=== PATIENT | female | born 1980 | race Caucasian/White ===

== ENCOUNTER → 2017-06-23 07:48 | Outpatient (CLI) | payer OTHER, SELFPAY ==
--- NOTE | 2017-06-23 07:50 | US_ITS ---
STUDY: ULTRASOUND OF THE FEMALE PELVIS - COMPLETE REASON FOR EXAM: Female, 36 years old. Menorrhagia. LMP: June 05, 2017. TECHNIQUE: Transabdominal and Transvaginal TECHNICAL QUALITY: Adequate. COMPARISON: None. FINDINGS: The uterus is anteverted and is in a midline position. The uterus is enlarged and measures 10.4 cm x 6.1 cm x 5.5 cm. Normal uterine cervix. The endometrium measures 15 mm in thickness, and is hyperechoic. There is no demonstrated endometrial mass. 2 uterine fibroids are seen. The larger measures 2.1 cm x 2.0 cm x 1.7 cm I.U.D. - The patient does not have an I.U.D. The right ovary is visualized. The right ovary measures 4.2 cm x 3.2 centimeters x 3.2 cm. Abdominal follicle is seen within it measuring 1.4 size by 1.8 cm x 1.6 cm. There is no visualized right adnexal mass or complex lesion. There is normal arterial and normal venous vascularity. The left ovary is visualized. The left ovary measures 2.6 cm x 3.1 cm x 3.8 cm. There is no left ovarian cyst or ovarian mass. There is no visualized left adnexal mass or complex lesion. There is normal arterial and normal venous vascularity. There is minimal fluid in the cul-de-sac. The pre void volume of the bladder was 452 ml. US/Pelvic (Non ) IMPRESSION: Enlarged fibroid uterus. Dominant follicle in the right ovary. Electronically Signed: Zaire Boss MD at 14:39 EST Tel [phone], Service support ,
--- NOTE | 2017-06-23 07:50 | US_ITS ---
STUDY: ULTRASOUND OF THE FEMALE PELVIS - COMPLETE REASON FOR EXAM: Female, 36 years old. Menorrhagia. LMP: June 05, 2017. TECHNIQUE: Transabdominal and Transvaginal TECHNICAL QUALITY: Adequate. COMPARISON: None. FINDINGS: The uterus is anteverted and is in a midline position. The uterus is enlarged and measures 10.4 cm x 6.1 cm x 5.5 cm. Normal uterine cervix. The endometrium measures 15 mm in thickness, and is hyperechoic. There is no demonstrated endometrial mass. 2 uterine fibroids are seen. The larger measures 2.1 cm x 2.0 cm x 1.7 cm I.U.D. - The patient does not have an I.U.D. The right ovary is visualized. The right ovary measures 4.2 cm x 3.2 centimeters x 3.2 cm. Abdominal follicle is seen within it measuring 1.4 size by 1.8 cm x 1.6 cm. There is no visualized right adnexal mass or complex lesion. There is normal arterial and normal venous vascularity. The left ovary is visualized. The left ovary measures 2.6 cm x 3.1 cm x 3.8 cm. There is no left ovarian cyst or ovarian mass. There is no visualized left adnexal mass or complex lesion. There is normal arterial and normal venous vascularity. There is minimal fluid in the cul-de-sac. The pre void volume of the bladder was 452 ml. US/Transvaginal Non- IMPRESSION: Enlarged fibroid uterus. Dominant follicle in the right ovary. Electronically Signed: Zaire Boss MD at 14:39 EST Tel [phone], Service support ,
== END ==
PROVIDERS: Family Provider Family Medicine; PCP Family Medicine; Visit Provider Nurse Practitioner Women's Health
DX: N92.0 Excessive and frequent menstruation with regular cycle (principal)
CPT/HCPCS: 76830; 76856; 93976

== ENCOUNTER 2018-07-23 09:45 | Day surgery (SDC) | payer OTHER, SELFPAY ==
[2018-07-13 07:56] VITALS: BMI 26.2
--- NOTE | 2018-07-22 11:45 | HP.PCM_ITS ---
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: No Is patient in pain?: No Allergies povidone-iodine [From Betagen (povidone-iodine)] Allergy (Severe, Verified 07/13/18 07:56) Rash Medications NK 06/02/17 [History Confirmed 07/13/18] Is last menstrual period known: Yes Last Menstral Period: 06/22/18 Post menopausal: No Patient : No : No [facility] Surgical History H/O section (Resolved) H/O dilation and curettage (Resolved ~2006) History of appendectomy (Resolved ~2008) Family History Father Heart disease at age 59 Mother Heart disease Hypertension Social History household members: family housing: house number of children: 2 current occupational status: employed Smoking Status: Never smoker second hand exposure: No alcohol intake: current seatbelt use: always do you feel safe at home: Yes additional social history: [place]- Spouse HPI Discuss surgical options: Details: JOSE DE JESUS NG is a 37 year old who presents for discussion of heavy menses. she has had them for the last year. Tampons are not workign [facility] she has to change every 1-2 hours super plus. she denies any signficiant crampingw ith the bleeding. she hasn't tried any hormonal managmeent for this and declines hormonal therapy due to a history of headaches. her has had a vasectomy. she denies any family history of cancer. Female Reproductive History Last Menstral Period: 06/22/18 Pregancy History 3 Elective abortions Hx Para 2 Spontaneous abortions Hx # Term Pregnancies 2 Ectopic pregnancies Hx # Pregnancies Multiple births # of living children 2 Past Pregnancies Del. Date Name GA/Weeks Outcome Route Bth Weight Infant Gen Labor Lgth Anesthesia Del Locatn Provider FOB 11/06/05 Akua 09/05/08 Natasha ROS Const Constitutional: Denies fatigue, fever(s), headache(s), increased appetite, poor appetite, weight gain or weight loss ENT ENT: Reports system reviewed and no additional complaints, except as docu Cardio Card: Denies chest pain Resp Resp: Denies cough or dyspnea GI GI: Reports as per HPI; denies abdominal pain, constipation, nausea or vomiting : Reports as per HPI; denies difficulty urinating, painful urination, nipple discharge, urinary frequency, urinary incontinence, urinary hesitancy, urinary urgency, vaginal discharge, vaginal dryness, vaginal odor or vaginal itching Musc Musc: Denies joint pain, back pain or muscle weakness Skin Skin/Breast: Denies change in hair, breast lump, breast pain, breast skin changes or nipple discharge Neuro Neuro: Reports system reviewed and no additional complaints, except as docu Psych Psych: Reports system reviewed and no additional complaints, except as docu Endo Endo: Denies cold intolerance, excessive sweating, heat intolerance or increased thirst Luciano/Lymph Hematologic/Lymphatic: Denies easy bleeding, Denies easy bruising, Denies enlarged lymph nodes Exam Const General: cooperative, healthy appearing, comfortable, no acute distress, well developed Nutritional Appearance: average body habitus Orientation: alert [facility] Head: normal to inspection, normocephalic Ears: hearing grossly normal bilaterally, external ears normal Nose: external nose normal, nares normal Face and sinus: normal facial exam Neck Neck: normal visual inspection, trachea midline Thyroid: thyroid normal Chest Chest palpation & inspection: normal inspection of the chest Resp Effort & Inspection: normal respiratory effort Auscultation: clear to auscultation bilaterally Cardio Rate: regular rate GI Inspection: normal to inspection, non-distended Palpation: soft, no hepatosplenomegaly General: bladder normal to palpation External Female Exam: normal external appearance, normal appearance of the urethra Urethra: normal appearance of the urethra, normal palpation, no discharge Speculum Exam - Vagina: normal appearance of the vagina, normal vaginal discharge Speculum Exam - Cervix: normal appearance of the cervix, nontender Bimanual Exam- Vagina & Uterus: normal bimanual exam, uterine size normal, bladder normal to palpation, uterine shape normal, No cervical tenderness, u terine mobility normal, uterine consistency normal, normal cervical palpation, uterus non-tender Bimanual Exam- Adnexa, other: normal adnexae, adnexae mobile, no adnexal masses, pelvic support normal Pelvic Support: normal Musc Other: gross motor intact no deficits, full bilateral strength Skin General: no rashes or lesions noted Neuro General: alert, awake, moves all extremities, no focal motor deficits Motor: muscle tone normal throughout Extrem General: normal to inspection, no pedal edema Psych Appearance: grossly normal Mental Status: mental status grossly normal Affect: normal affect Speech and Movement: speech and movement normal Assessment & Plan Problems 1. Abnormal uterine bleeding N93.9 2. Subserous leiomyoma of uterus D25.2 Plan discussed with patient at length options of hormonal, IUD, lysteda, abaltion and LAVH management of AUB. patient declines hromonal management due to side effects i nthe past, plan for d and c hysteroscopy ablation Orders Orders: Comprehensive Metabolic Profil Today R10.11 CBC W/Diff, Automated Today R10.11 Coding Level of Care Code Off vis,est,level 4 Diagnoses Abnormal uterine bleeding N93.9 Subserous leiomyoma of uterus D25.2 ??Uterine leiomyoma location: subserous UPDATE- I have seen the patient and performed any clinically relevant updates to the history and physical exam. Ruth Ann Schroeder MD
[2018-07-23] VITALS (7 sets, daily range): BP systolic 112–141; BP diastolic 73–92; PULSE 59–91; RESP 14–16; TEMP 36.6–36.9; O2SAT 99–100; BMI 25.4
[2018-07-23 10:14] LABS: Internal QC Validated? YES +Cl - CLEAR BKGD; Pregnancy, Urine Negative Negative
[2018-07-23 10:21] LABS: Hematocrit 39.4 % (37-47); Hemoglobin 12.5 g/dl (12.0-15.0); Mean Corp Hgb Conc 31.7 g/gl (32-36); Mean Corpuscular Hgb 27.2 pg (27.0-32.0); Mean Corpuscular Volume 85.8 fL (81-99); Mean Platelet Vol. 9.9 fl (6.2-12.0); Platelet Count 278 K/mm3 (150-450); RBC Distribution Width CV 13.7 % (11.6-14.6); RBC Distribution Width SD 42.7 fl (35.1-43.9); Red Blood Count 4.59 M/mm3 (4.2-5.4); White Blood Count 6.8 K/mm3 (4.4-11.0)
[2018-07-23 10:23] LABS: Scan Indicated on CBC? Y/N NO
--- NOTE | 2018-07-23 13:10 | PCM.OPRPT ---
Problem List (1) Abnormal uterine bleeding (AUB) Status: Acute Report of Operation Date of Procedure: 07/23/18 Pre-Operative Diagnosis: aub Post-Operative Diagnosis: aub Surgery/Procedure Performed:: d and c hysteroscopy akanksah Description of Surgical Findings:: normal, thin lining Type of Anesthesia:: Local MAC Special Medications: none Specimen's removed: none Drains: none Estimated Blood Loss (mL): minimal Fluids Replaced: crystalloid Description of Procedure: Patient was prepped and draped in a normal sterile fashion under MAC anesthesia. A weighted speculum was placed in the vagina and the anterior lip of the cervix was grasped with a single-tooth tenaculum. A paracervical block was placed with 1% lidocaine. Cervix was progressively dilated to allow passage of a 5 mm hysteroscope. The lining was fully visualized and noted to have a thin lining. Uterine sounded to 8.5 cm. The Akanksha device was opened and the cavity length was found to be 4.5 cm. Device was inserted into the uterus and balloon inflated and device deployed. Integrity of the cavity was confirmed and a 2 minute treatment cycle was completed without complication. All instruments were removed from the vagina and excellent hemostasis was noted. Patient was awoken and taken to recovery in stable condition. Grafts/Implants Used: none - Complications none
--- NOTE | 2018-07-23 13:14 | DCINST_ITS ---
Discharge Diet: No Restrictions Discharge Activity: Return to Normal Activity, May Shower, May Take a Tub Bath Allergies/Adverse Reactions: Allergies povidone-iodine [From Betagen (povidone-iodine)] Allergy (Severe, Verified 07/16/18 14:01) Rash Medications to take at Discharge Ibuprofen [Advil] 200 mg PO PRN PRN 07/16/18 Ibuprofen [Motrin] 600 mg PO Q6H PRN PRN #30 tablet 07/23/18 The following prescriptions were given: Ibuprofen [Motrin] 600 mg PO Q6H PRN PRN #30 tablet PRN Reason: Pain Primary Care Physician: Malachi Worthy MD [Primary Care Provider] - Test Results: Test results from this visit will be discussed in further detail at your follow- up appointment, if applicable. Please Follow Up With: Ruth Ann Schroeder MD - [phone]
== END 2018-07-23 14:28 | disposition home or self-care (01) ==
LOC: SDC 09:46 → AC 09:48
PROVIDERS: Anesthesiology; Family Provider Family Medicine; PCP Family Medicine; Referring Provider Obstetrics & Gynecology; Visit Provider Obstetrics & Gynecology
PROC: 0U5B8ZZ Destruction of Endometrium, Via Natural or Artificial Opening Endoscopic (ICD-10-PCS; CPT 58558; principal; 2018-07-23 11:05)
DX: N93.9 Abnormal uterine and vaginal bleeding, unspecified (principal); R10.11 Right upper quadrant pain; D25.2 Subserosal leiomyoma of uterus
CPT/HCPCS: 00952; 58300; 58558; 36415; 81025; 85027; 86850; 86900; J7120; J2405

== ENCOUNTER → 2018-08-01 10:03 | Outpatient (CLI) | payer OTHER, SELFPAY ==
[2018-07-23 10:11] VITALS: BMI 25.4
--- NOTE | 2018-08-01 10:05 | US_ITS ---
STUDY: ABDOMINAL ULTRASOUND - RIGHT UPPER QUADRANT REASON FOR VISIT: Female, 37 years old. Right upper quadrant pain TECHNIQUE: Ultrasound evaluation of the right upper quadrant was performed with real-time and static dee-scale imaging. TECHNICAL QUALITY: Adequate. COMPARISON: None. FINDINGS: Liver: The liver measures 15 cm. There is normal echogenicity of the liver. The bile ducts are within normal limits. There is hepatic color flow. The direction of portal flow is hepatopetal. There is no demonstrated mass lesion. Gallbladder: Normal distended gallbladder. The gallbladder wall measures 2.6 mm. There is a negative sonographic Theodore's sign. There is no pericholecystic fluid. There are no gallstones. Common Bile Duct (C.B.D.): The common bile duct measures 2.6 mm. Pancreas: There is normal echogenicity of the visualized pancreas. There is no demonstrated pancreatic mass or cyst. Right Kidney: Normal size of the right kidney. The right kidney measures 10.5 x 4.4 x 5.0 cm. Normal renal cortex. There is no demonstrated renal mass or cyst. There is no right hydronephrosis. US/Gallbladder IMPRESSION: Normal right upper quadrant ultrasound examination. Electronically Signed: Michael Khan MD at 9:40 EDT , Service support ,
[2018-08-01 12:41] LABS: ALB/GLOB Ratio 1.2 RATIO (0.9-2.4); AST(SGOT) 9 U/L (15-37); Alanine Aminotransfer ALT/SGPT 17 U/L (13-56); Albumin, Serum 3.9 g/dL (3.2-5.0); Alkaline Phosphatase 54 U/L (45-117); Anion Gap 6 (5-15); BUN 10 mg/dL (7-18); BUN/Creat Ratio 14.4 RATIO (10-20); Calcium,Total 8.5 mg/dL (8.5-10.1); Chloride 110 mmol/L (98-107); EST Glomerular Filtration Rate 100 mL/min (>60); Est Glom Filt Rate - Afr Amer 121 mL/min (>60); Globulin 3.2 g/dL (2.2-4.2); Glucose 86 mg/dL (74-106); Potassium 3.9 mmol/L (3.5-5.1); Protein, Total 7.1 g/dL (6.4-8.2); Sodium Level 143 mmol/L (136-145)
== END ==
PROVIDERS: Family Provider Family Medicine; PCP Family Medicine; Referring Provider Obstetrics & Gynecology; Visit Provider Obstetrics & Gynecology
DX: R10.11 Right upper quadrant pain (principal)
CPT/HCPCS: 36415; 76705; 80053

== ENCOUNTER → 2019-08-02 14:43 | Outpatient (CLI) | payer OTHER, SELFPAY ==
[2018-07-23 10:11] VITALS: BMI 25.4
[2019-08-02 17:57] LABS: T4 Free Direct 1.04 ng/dL (0.76-1.46); Thyroid Stim Hormone (TSH) 2.38 uIU/mL (0.358-3.74)
== END ==
PROVIDERS: PCP Family Medicine; Visit Provider Family Medicine
DX: R55 Syncope and collapse (principal); N92.1 Excessive and frequent menstruation with irregular cycle
CPT/HCPCS: 36415; 84439; 84443

== ENCOUNTER → 2020-12-02 08:17 | Outpatient (CLI) | payer OTHER, SELFPAY ==
[2018-07-23 10:11] VITALS: BMI 25.4
[2020-12-02 09:45] LABS: Cholesterol 189 mg/dL (200); Glucose 96 mg/dL (74-106); High Density Lipoprotein 74 mg/dL; Triglycerides 45 mg/dL; Very Low Density Lipoprotein 9 mg/dL (5-40)
== END ==
PROVIDERS: PCP Family Medicine; Referring Provider Family Medicine; Visit Provider Family Medicine
DX: Z13.220 Encounter for screening for lipoid disorders (principal); Z13.1 Encounter for screening for diabetes mellitus
CPT/HCPCS: 36415; 80061; 82947

== ENCOUNTER → 2021-04-25 16:54 | Outpatient (CLI) | payer OTHER, SELFPAY ==
--- NOTE | 2021-04-25 16:57 | RAD_ITS ---
STUDY: X-RAY - UNILATERAL RIBS ( RIGHT ) REASON FOR EXAM: Female, 40 years old. RIB PAIN TECHNIQUE: 4 view(s) of the ribs. COMPARISON: None. FINDINGS: Normal visualized ribs without a demonstrated fracture. The visualized lung is clear and expanded. RAD/Ribs Unil 2V No CXR IMPRESSION: Normal x-ray examination of the ribs. Electronically Signed: Omkar Hernandez MD at 17:14 EST Tel , Service support ,
--- NOTE | 2021-04-25 17:00 | RAD_ITS ---
STUDY: X-RAY CHEST REASON FOR EXAM: Female, 40 years old. CHEST PAIN TECHNIQUE: PA and lateral views of the chest. COMPARISON: None. FINDINGS: The lungs are clear and expanded. There is no demonstrated pleural abnormality. Normal size heart. Normal mediastinum and paola. Normal visualized pulmonary arteries. Normal visualized aortic arch and descending thoracic aorta. Normal visualized thoracic spine. Normal visualized ribs, clavicles, and shoulders. There is no demonstrated abnormality of the visualized soft tissue structures of the upper abdomen. RAD/Chest PA and Lateral IMPRESSION: Normal x-ray examination of the chest. Electronically Signed: Omkar Hernandez MD at 17:15 EST Tel , Service support ,
== END ==
PROVIDERS: PCP Family Medicine; Referring Provider Family Medicine; Visit Provider Family Medicine
DX: R07.9 Chest pain, unspecified (principal); R07.81 Pleurodynia
CPT/HCPCS: 71046; 71100

== ENCOUNTER → 2022-06-05 | Outpatient (CLI) | payer OTHER, SELFPAY ==
--- NOTE | 2022-06-05 13:45 | BI_ITS ---
MAMMOGRAPHY - BILATERAL SCREENING REASON FOR EXAM: Female, 41 years old. Routine annual screening examination. PERTINENT HISTORY: Sister with breast cancer. TECHNIQUE: Digital bilateral breast shalini (3D mammographic acquisition) in the CC and MLO projections. 2-D mediolateral oblique (MLO) and craniocaudad (CC) views of both breasts were obtained. CAD: Full Field Digital Mammography with Computer Added Detection was performed. COMPARISON: None. Baseline examination. FINDINGS: Breast Composition: The breasts are extremely dense, which lowers the sensitivity of mammography. There are no dominant masses or suspicious calcifications. No other significant abnormalities are identified. BI/SCRN MAMM (CAD)W/SHALINI BILAT IMPRESSION: Negative screening mammogram. Yearly followup mammogram recommended. (A) ASSESSMENT CATEGORY: BIRADS Category 1: Negative. A letter regarding these results will be sent to the patient by the facility within 30 days. Approximately 10% of breast cancers are not detected by mammography. A normal mammogram should not delay biopsy of a clinically suspicious abnormality. [id number] Electronically Signed: Zaire Boss MD at 14:39 EST ,
== END | disposition home or self-care (01) ==
LOC: OPBI 13:38
PROVIDERS: PCP Family Medicine; Visit Provider Nurse Practitioner Women's Health
DX: Z12.31 Encounter for screening mammogram for malignant neoplasm of breast (principal); Z80.3 Family history of malignant neoplasm of breast
CPT/HCPCS: 77063; 77067

== ENCOUNTER → 2022-07-18 | Outpatient (CLI) | payer OTHER, SELFPAY ==
[2022-07-18 15:41] LABS: NATERA MAILED SPECIMEN
== END | disposition home or self-care (01) ==
LOC: PAVLAB 14:33
PROVIDERS: PCP Family Medicine; Referring Provider Obstetrics & Gynecology; Visit Provider Obstetrics & Gynecology
DX: N93.9 Abnormal uterine and vaginal bleeding, unspecified (principal); Z80.3 Family history of malignant neoplasm of breast
CPT/HCPCS: 36415

== ENCOUNTER → 2022-10-09 | Outpatient (CLI) | payer OTHER, SELFPAY ==
[2022-10-09 17:51] LABS: Absolute Lymphocyte Count 3.31 X10^3/uL (0.83-4.51); Basophil# 0.05 X10^3/uL; Basophil% 0.6 % (0-1); Eosinophil# 0.12 X10^3/uL; Eosinophils% 1.3 % (0-5); Hematocrit 41.7 % (37-47); Hemoglobin 13.3 g/dL (12.0-15.0); Lymphocyte # 3.31 X10^3/ul (0.83-4.51); Lymphocyte % 36.5 % (19-41); Mean Corp Hgb Conc 31.9 g/dL (32-36); Mean Corpuscular Hgb 28.3 pg (27.0-32.0); Mean Corpuscular Volume 88.7 fL (81-99); Mean Platelet Vol. 10.2 fl (6.2-12.0); Monocyte# 0.57 X10^3/uL; Monocyte% 6.3 % (0-10); NRBC Flagged by Analyzer 0 % (0-5); Neutrophil # 4.99 X10^3/uL (2.7-7.7); Neutrophil % 55.1 % (47-70); Platelet Count 328 K/mm3 (150-450); RBC Distribution Width CV 12.5 % (11.6-14.6); RBC Distribution Width SD 40.8 fl (35.1-43.9); White Blood Count 9.1 K/mm3 (4.4-11.0)
[2022-10-09 18:04] LABS: ALB/GLOB Ratio 1.1 RATIO (0.9-2.4); AST(SGOT) 10 U/L (15-37); Alanine Aminotransfer ALT/SGPT 19 U/L (13-56); Albumin, Serum 3.9 g/dL (3.2-5.0); Alkaline Phosphatase 53 U/L (45-117); Anion Gap 7 (5-15); BUN 12 mg/dL (7-18); Calcium,Total 8.8 mg/dL (8.5-10.1); Chloride 107 mmol/L (98-107); Cholesterol 172 mg/dL (200); EST Glomerular Filtration Rate 116 mL/min (>60); Est Glom Filt Rate - Afr Amer 141 mL/min (>60); Globulin 3.5 g/dL (2.2-4.2); Glucose 90 mg/dL (74-106); High Density Lipoprotein 70 mg/dL; Potassium 3.9 mmol/L (3.5-5.1); Protein, Total 7.4 g/dL (6.4-8.2); Sodium Level 138 mmol/L (136-145); T4 Free Direct 1.22 ng/dL (0.76-1.46); Thyroid Stim Hormone (TSH) 2.02 uIU/mL (0.358-3.74); Triglycerides 40 mg/dL; Very Low Density Lipoprotein 8 mg/dL (5-40)
[2022-10-09 18:05] LABS: Vitamin D,25 Hydroxy 44.8 ng/mL
== END | disposition home or self-care (01) ==
LOC: MTLAB 16:24
PROVIDERS: PCP Nurse Practitioner Family; Referring Provider Nurse Practitioner Family; Visit Provider Nurse Practitioner Family
DX: Z00.00 Encounter for general adult medical examination without abnormal findings (principal); E55.9 Vitamin D deficiency, unspecified; E03.9 Hypothyroidism, unspecified
CPT/HCPCS: 36415; 80053; 80061; 82306; 84439; 84443; 85025

== ENCOUNTER → 2022-12-05 | Outpatient (CLI) | payer OTHER, SELFPAY ==
--- NOTE | 2022-12-05 10:27 | MRI_ITS ---
STUDY: BILATERAL BREAST MR WITHOUT AND WITH CONTRAST REASON FOR EXAM: Female, 42 years old. Abnormal genetic testing. TECHNIQUE: Multi-sequence multi-echo imaging of both breasts was performed with a dedicated breast coil. T1-weighted and T2-weighted images were performed before the administration of contrast. T1-weighted images were also performed after the intravenous administration of 14 mL of Clariscan contrast. COMPARISON: Bilateral mammogram dated June 05, 2022. FINDINGS: RIGHT BREAST: Heterogeneously dense fibroglandular tissue with moderate to marked background enhancement. 8 mm in diameter lobular relatively circumscribed mass at approximately the 10:00 position 7.4 cm from the nipple. This likely represents a fibroadenoma. However, the patient should return for a second look ultrasound of the right breast. Depending on the ultrasound findings, a decision can be made to follow this lesion for 6 months or at the patient undergo ultrasound-guided biopsy of the mass. LEFT BREAST: Heterogeneously dense fibroglandular tissue with moderate to marked background enhancement. No abnormal enhancing masses or areas of non-mass enhancement in the left breast. No enlarged or abnormal lymph nodes. No abnormality in the visualized regions of the chest or liver. MRI/Breast Bilateral W/O and W IMPRESSION: 8 mm in diameter lobulated circumscribed enhancing mass at the 10:00 position of the right breast for which a second look ultrasound is recommended. Depending on the findings at ultrasound, the decision can be made to follow this mass for 6 months or at the patient undergo ultrasound-guided biopsy of the mass. CATEGORY: BIRADS Category 0: Incomplete. Need additional imaging evaluation. A letter regarding these results will be sent to the patient by the facility within 30 days. Electronically Signed: Tejinder Todd MD at 14:40 EDT ,
== END | disposition home or self-care (01) ==
LOC: MRI 10:14
PROVIDERS: PCP Nurse Practitioner Family; Referring Provider Obstetrics & Gynecology; Visit Provider Obstetrics & Gynecology
DX: R89.8 Other abnormal findings in specimens from other organs, systems and tissues (principal); Z80.3 Family history of malignant neoplasm of breast
CPT/HCPCS: 77049; A9575; A4216; C8908

== ENCOUNTER → 2022-12-19 | Outpatient (CLI) | payer OTHER, SELFPAY ==
--- NOTE | 2022-12-19 13:18 | US_ITS ---
STUDY: ULTRASOUND BREAST - RIGHT REASON FOR EXAM: Female, 42 years old. Second look ultrasound after breast MRI with contrast. TECHNIQUE: Axial and longitudinal images of the RIGHT breast were performed with a high resolution ultrasound transducer. # OF IMAGES: 19 COMPARISON: Bilateral breast MRI with contrast dated December 05, 2022 and bilateral screening mammogram dated June 05, 2022 FINDINGS: RIGHT Breast: Targeted examination of the right breast shows a hypoechoic lesion, slightly lobulated at the 10:00 position of the right breast 7 cm from the nipple measuring 8 mm x 8 mm x 5 mm. Lesion has no aggressive features by ultrasound criteria and shows no increased blood flow. Therefore, a six-month follow-up right breast ultrasound to establish the stability of this lesion is recommended. No other abnormality is identified. US/Breast Limited Unilateral IMPRESSION: Lobulated circumscribed hypoechoic mass at 10:00 position of the right breast, likely representing a cyst. However, given the patient''s history, a six-month follow-up right breast ultrasound is recommended to assure the stability of this lesion. ASSESSMENT CATEGORY: BIRADS Category 3: Probably Benign - Short-Interval Follow-up Suggested. A letter regarding these results will be sent to the patient by the facility within 30 days. Electronically Signed: Tejinder Todd MD at 14:11 EDT ,
== END | disposition home or self-care (01) ==
LOC: OPUS 13:17
PROVIDERS: PCP Nurse Practitioner Family; Referring Provider Obstetrics & Gynecology; Visit Provider Obstetrics & Gynecology
DX: D24.9 Benign neoplasm of unspecified breast (principal)
CPT/HCPCS: 76642

== ENCOUNTER → 2023-06-26 | Outpatient (CLI) | payer OTHER, SELFPAY ==
--- NOTE | 2023-06-26 07:31 | US_ITS ---
STUDY: ULTRASOUND BREAST - RIGHT REASON FOR EXAM: Female, 42 years old. Six-month follow-up for right breast cyst. TECHNIQUE: Axial and longitudinal images of the RIGHT breast were performed with a high resolution ultrasound transducer. # OF IMAGES: 24 COMPARISON: Comparison is made with prior ultrasound of the right breast dated December 19, 2022 and prior MRI of the breast dated December 05, 2022. FINDINGS: RIGHT Breast: There is a 7 mm x 7 mm x 5 mm simple cyst at the 10:00 position of the breast at 7 cm from the nipple. This is unchanged. US/Breast Limited Unilateral IMPRESSION: Stable 7 mm x 7 mm x 5 mm simple cyst at the 10:00 position of the breast at 7 cm from nipple. Routine mammographic follow-up recommended. ASSESSMENT CATEGORY: BIRADS Category 2: Benign. A letter regarding these results will be sent to the patient by the facility within 30 days. Electronically Signed: Zaire Boss MD at 14:27 EST ,
--- NOTE | 2023-06-26 07:31 | BI_ITS ---
MAMMOGRAPHY - BILATERAL SCREENING REASON FOR EXAM: Female, 42 years old. Routine annual screening examination. PERTINENT HISTORY: Sister with breast cancer. History of the cyst in the right breast. TECHNIQUE: Digital bilateral breast shalini (3D mammographic acquisition) in the CC and MLO projections. 2-D mediolateral oblique (MLO) and craniocaudad (CC) views of both breasts were obtained. CAD: Full Field Digital Mammography with Computer Added Detection was performed. COMPARISON: Comparison is made with prior mammogram dated June 05, 2022. FINDINGS: Breast Composition: The breasts are extremely dense, which lowers the sensitivity of mammography. There are no dominant masses or suspicious calcifications. No other significant abnormalities are identified. There has been no significant change since the prior study. BI/SCRN MAMM (CAD)W/SHALINI BILAT IMPRESSION: Stable bilateral screening mammogram. Yearly follow-up mammogram recommended. (A) ASSESSMENT CATEGORY: BIRADS Category 1: Negative. A letter regarding these results will be sent to the patient by the facility within 30 days. Approximately 10% of breast cancers are not detected by mammography. A normal mammogram should not delay biopsy of a clinically suspicious abnormality. [id number] Electronically Signed: Zaire Boss MD at 8:54 EST ,
--- OUTSIDE RECORDS SUMMARY | 2023-06-26 07:33 | XMS RPT_ITS | CCD ---
Author Name Unknown Address [address] [place], [place] [id number] Organization [facility] Progress note 12-04-2020 Note Date & Type Note Facility 12-04-2020 Note HNO ID: [id number] Author: YOCASTA Schaeffer Service: ? Author Type: Patient Photo Lab Specialist Type: Progress Notes Filed: 12/04/2020 2:39 PM Note Text: POPULATION HEALTH NAVIGATION OUTREACH Action/FYI Pap, and mammogram. Spoke to pt and she stated she used to got to [facility] but her provider left so she now goes outside [facility] for her woman's health Contact made with patient or family member? YES Pt identified by name and : YES Outreach Outcome/Action Spoke to patient or caregiver: Patient declined Reason for Outreach Care Gap or Scheduling/Wellness visits Payer: Payor: AET[employer] / Plan: AET[employer] CHOICE POS II / Product Type: POS / Care Gap Reviewed:: Annual Wellness visit Breast Cancer screening Reminder: Reminder note to check Health Maintenance for items below Health Maintenance items due: DEPRESSION SCREENING Never done COVID-19 VACCINE(1) Never done DTAP,TDAP,TD(1 - Tdap) Never done PAP TESTING due on 09/21/2019 HPV TESTING due on 09/21/2019 MAMMOGRAM Never done Advanced Directives Completed: Have you ever planned for future healthcare decisions with a power of commercial real estate attorney, living will, or advance directives? Referrals: N/A Message Sent to Practice: NO Navigation Signature: YOCASTA Schaeffer December 04, 2020 2:37 PM [facility] Clinical Note 12-04-2020 Note Date & Type Note Facility 12-04-2020 Note Patient Outreach (NE TNAV) JOSE DE JESUS NG ([id number]) 1980 F Date Time Provider Department 12/04/20 FARHANA IRWIN During your visit today, we recorded the following information about you: Farhana Irwin, YOCASTA 12/04/2020 2:39 PM Signed POPULATION HEALTH NAVIGATION OUTREACH Action/FYI Pap, and mammogram. Spoke to pt and she stated she used to got to [facility] but her provider left so she now goes outside [facility] for her woman's health Contact made with patient or family member? YES Pt identified by name and : YES Outreach Outcome/Action Spoke to patient or caregiver: Patient declined Reason for Outreach Care Gap or Scheduling/Wellness visits Payer: Payor: AETNA / Plan: AET[employer] CHOICE POS II / Product Type: POS / Care Gap Reviewed:: Annual Wellness visit Breast Cancer screening Reminder: Reminder note to check Health Maintenance for items below Health Maintenance items due: DEPRESSION SCREENING Never done COVID-19 VACCINE(1) Never done DTAP,TDAP,TD(1 - Tdap) Never done PAP TESTING due on 09/21/2019 HPV TESTING due on 09/21/2019 MAMMOGRAM Never done Advanced Directives Completed: Have you ever planned for future healthcare decisions with a power of commercial real estate attorney, living will, or advance directives? Referrals: N/A Message Sent to Practice: NO Navigation Signature: YOCASTA Schaeffer December 04, 2020 2:37 PM Allergies As of Date: 12/04/2020 Noted Allergy Reaction BETADINE (POVIDONE-IODINE) 03/05/2007 2 - Rash CATS 03/05/2007 Comments: SNEEZING chloroprep [Other] 09/21/2008 2 - Rash surgical prep cleansers [Other] 03/28/2010 2 - Rash 9 - Itching Date Reviewed: 04/01/2016 Reviewed by: Tania Encarnacion CNP - Fully Assessed Reason for Visit: Population Health Navigation Outreach [3910] Cmt: pap, mammogram Prescriptions as of 12/04/2020 - fluconazole (DIFLUCAN) 150 mg tablet Take 1 tablet today and repeat in 3 days - Sulfacetamide Sodium-Sulfur (PLEXION) 10-5 % (w/w) clsr Cleanse affected areas of acne of face, neck, chest, shoulders, and back qd to bid (as tolerated and directed). - Dapsone (ACZONE) 5 % gel Apply to entire acne areas of face qday to bid (once to twice per day) as tolerated and directed. - eletriptan hydrobromide(RELPAX 20 MG TAB) take 1-2 tabs at first sign of headache; may repeat 1-2 tabs in two hours Problem List As Of Date 12/04/2020 Noted Resolved MIGRAINE NEC [346.8] SUPERVIS OTHER NORMAL PREG [Z34.80] 03/05/2007 03/23/2007 MISSED [O02.1] 03/23/2007 01/13/2008 Acute appendicitis with generalized peritonitis*09/15/2008 09/20/2014 INTRADERMAL NEVUS MOLE///BENIGN COLLETTE SKIN LIP [D*10/20/2008 01/16/2014 INTRADERMAL NEVI MOLES///BENIGN COLLETTE SKIN FACE N*10/20/2008 01/16/2014 Other chronic dermatitis due to solar radiation*10/20/2008 01/16/2014 ATYPICAL/DYSPLASTIC///UNCERTAIN BEHAV NEOPL SKI*11/21/2008 01/16/2014 Acne Vulgaris: Inflammatory//Comedonal: Grade *08/29/2010 09/20/2014 Acne Scars [L90.5] 02/01/2011 09/20/2014 Pigmentation due to minocycline: focal, limited*08/22/2011 09/20/2014 Postinflammatory skin changes [R23.8] 01/16/2014 09/20/2014 Other specified procreative management(V26.89) *07/11/2014 09/20/2014 Goiter [E04.9] 09/20/2014 Encounter Status:Closed by FARHANA IRWIN on 12/04/20 [facility] Summary Purpose Family History No Family History Records Found Advance Directives No Advanced Directives Records Found Additional Source Comments INFORMATION SOURCE (unrecogn ized section and content) FOR RECORDS PERTAINING TO PATIENTS WHO ARE OR HAVE BEEN ENROLLED IN A CHEMICAL DEPENDENCY/SUBSTANCEABUSE PROGRAM, SOME INFORMATION MAY BE OMITTED. This clinical summary was aggregated from multiple sources. Caution should be exercised in using it in the provision of clinical care. This summary normalizes information from multiple sources, and as a consequence, information in this document may materially change the coding, format and clinical context of patient data. In addition, data may be omitted in some cases. CLINICAL DECISIONS SHOULD BE BASED ON THE PRIMARY CLINICAL RECORDS. [facility] [employer] [facility]. provides no warranty or guarantee of the accuracy or completeness of information in this document.
== END | disposition home or self-care (01) ==
LOC: OPBI 07:31
PROVIDERS: PCP Nurse Practitioner Family; Referring Provider Obstetrics & Gynecology; Visit Provider Obstetrics & Gynecology
DX: Z12.31 Encounter for screening mammogram for malignant neoplasm of breast (principal); Z80.3 Family history of malignant neoplasm of breast; N60.01 Solitary cyst of right breast
CPT/HCPCS: 76642; 77063; 77067

== ENCOUNTER → 2023-07-08 | Outpatient (CLI) | payer OTHER, SELFPAY ==
--- OUTSIDE RECORDS SUMMARY | 2023-07-08 10:46 | XMS RPT_ITS | CCD ---
Author Name Unknown Address [address] [place], [place] [address] Organization [facility] Progress note 12-04-2020 Note Date & Type Note Facility 12-04-2020 Note HNO ID: [id number] Author: YOCASTA Schaeffer Service: ? Author Type: Patient Assurance Senior Manager Insurance Type: Progress Notes Filed: 12/04/2020 2:39 PM [...] future healthcare decisions with a power of state attorney, living will, or advance directives? Referrals: N/A Message Sent to Practice: NO Navigation Signature: YOCASTA Schaeffer December 04, 2020 2:37 PM [facility] Clinical Note 12-04-2020 Note Date & Type Note Facility 12-04-2020 Note Patient Outreach (NE TNAV) JOSE DE JESUS NG ([id number]) 1980 F Date Time Provider Department 12/04/20 [...] future healthcare decisions with a power of state attorney, living will, or advance directives? Referrals: [...] Encounter Status:Closed by FARHANA IRWIN on 12/04/20 [facility] Summary Purpose Family History No Family [...] BE BASED ON THE PRIMARY CLINICAL RECORDS. [facility]. provides no warranty or guarantee of the accuracy or completeness of information in this document.
[2023-07-11 12:09] LABS: HPV APTIMA, High Risk Negative (Negative)
== END | disposition home or self-care (01) ==
LOC: LABSPEC 10:04
PROVIDERS: PCP Nurse Practitioner Family; Referring Provider Nurse Practitioner Women's Health; Visit Provider Nurse Practitioner Women's Health
DX: Z12.4 Encounter for screening for malignant neoplasm of cervix (principal)
CPT/HCPCS: 87624; 88175; G0145

== ENCOUNTER → 2024-01-23 | Outpatient (CLI) | payer OTHER, SELFPAY ==
--- NOTE | 2024-01-23 13:27 | MRI_ITS ---
STUDY: BILATERAL BREAST MR WITHOUT AND WITH CONTRAST REASON FOR EXAM: Female, 43 years old. History of right breast cyst by ultrasound in December 2022. Follow-up. TECHNIQUE: Multi-sequence multi-echo imaging of both breasts was performed with a dedicated breast coil. T1-weighted and T2-weighted images were performed before the administration of contrast. T1-weighted images were also performed after the intravenous administration of 15 mL of Clariscan contrast. COMPARISON: Comparison right breast ultrasound dated June 26, 2023, screening bilateral mammogram dated June 2023, right breast ultrasound dated December 19, 2022 and MRI of the breasts dated December 05, 2022. FINDINGS: RIGHT BREAST: Scattered fibroglandular densities with moderate background enhancement. Stable circumscribed 8 mm in diameter lesion at the 10:00 position of the right breast which has been shown to be a cyst by ultrasound. Multiple nodular areas of background enhancement are relatively stable. No abnormal enhancing masses or areas of non-mass enhancement in the right breast. LEFT BREAST: Scattered fibroglandular densities with moderate background enhancement. No abnormal enhancing masses or areas of non-mass enhancement in the left breast. No enlarged or abnormal lymph nodes. No abnormality in the visualized regions of the chest or liver. MRI/Breast Bilateral W/O and W IMPRESSION: Stable scattered fibroglandular densities with marked background enhancement, right greater than left. Stable 8 mm in diameter circumscribed lesion at the 10:00 position of the right breast which has been shown to be a cyst. Yearly screening mammogram with BE appropriate for continued surveillance. CATEGORY: BIRADS Category 2: Benign. A letter regarding these results will be sent to the patient by the facility within 30 days. Electronically Signed: Tejinder Todd MD at 9:20 EDT ,
== END | disposition home or self-care (01) ==
PROVIDERS: PCP Nurse Practitioner Family; Referring Provider Nurse Practitioner Women's Health; Visit Provider Nurse Practitioner Women's Health
DX: N60.01 Solitary cyst of right breast (principal); R89.8 Other abnormal findings in specimens from other organs, systems and tissues; Z80.3 Family history of malignant neoplasm of breast; Z15.09 Genetic susceptibility to other malignant neoplasm
CPT/HCPCS: 77049; A9575; A4216; C8908

== ENCOUNTER → 2024-06-28 | Outpatient (CLI) | payer OTHER, SELFPAY ==
--- NOTE | 2024-06-28 08:13 | BI_ITS ---
PROCEDURE: SCRN MAMM (CAD)W/SHALINI BILAT REASON FOR EXAM: F, Age 43 y/o, sister with breast cancer. Annual follow-up. TECHNIQUE: Bilateral screening digital breast tomosynthesis with 2D and 3D images. Computer aided detection. COMPARISON: Prior exam(s) dating back to June 2023.. FINDINGS: The breasts are extremely dense which lowers the sensitivity of mammography. Stable examination. Small benign-appearing bilateral axillary lymph nodes. No suspicious masses, areas of developing architectural distortion, or suspicious calcifications. BI/SCRN MAMM (CAD)W/SHALINI BILAT IMPRESSION: BI-RADS 2: BENIGN. RECOMMEND ANNUAL MAMMOGRAPHIC SCREENING. Follow-up code: Routine Follow-up The patient will be notified of the results by letter. Reading Location: [place] [address]
== END | disposition home or self-care (01) ==
LOC: OPBI 08:12
PROVIDERS: PCP Nurse Practitioner Family; Referring Provider Nurse Practitioner Women's Health; Visit Provider Nurse Practitioner Women's Health
DX: Z12.31 Encounter for screening mammogram for malignant neoplasm of breast (principal); Z80.3 Family history of malignant neoplasm of breast
CPT/HCPCS: 77063; 77067

== ENCOUNTER → 2025-02-08 | Outpatient (CLI) | payer OTHER, SELFPAY ==
--- NOTE | 2025-02-08 13:24 | MRI_ITS ---
PROCEDURE: BREAST BILATERAL W/O AND W 02/08/2025 REASON FOR EXAM: SCREENING FOR BREAST CANCER 44-year-old female presents for high-risk screening breast MRI due to patient's strong family history of breast cancer. TECHNIQUE: Procedure Code: [id number] Modality: MR Procedure: BREAST BILATERAL W/O AND W CONTRAST: 15 mL of IV Clariscan COMPARISON: MRI 01/23/2024, 12/05/2022. Mammogram 06/28/2024 FINDINGS: TISSUE DENSITY: The breasts are heterogeneously dense, which may obscure small masses. Background Parenchymal Enhancement: Moderate. This may decrease the sensitivity of breast MRI. RIGHT Breast: Stable 0.8 cm gently lobulated enhancing mass with probable nonenhancing internal septations in the upper-outer right breast at posterior depth, this likely represents a fibroadenoma. No suspicious mass or non-mass enhancement. LEFT Breast: No suspicious mass or non-mass enhancement. Other Findings: No suspicious axillary or internal mammary lymph nodes. Visualized portions of the thoracic and abdominal viscera are unremarkable. MRI/Breast Bilateral W/O and W IMPRESSION: There is no MR evidence of malignancy in either breast. OVERALL FINAL ASSESSMENT BI-RADS 2: BENIGN RECOMMENDATION: OTHER. Continue annual screening mammogram with alternating br east MRI every six-months. Reading Location: [facility]
== END | disposition home or self-care (01) ==
LOC: OPMRI 13:18
PROVIDERS: PCP Nurse Practitioner Family; Referring Provider Nurse Practitioner Women's Health; Visit Provider Nurse Practitioner Women's Health
DX: Z12.31 Encounter for screening mammogram for malignant neoplasm of breast (principal); Z15.09 Genetic susceptibility to other malignant neoplasm; Z80.3 Family history of malignant neoplasm of breast
CPT/HCPCS: 77049; A9575; A4216; C8908

== ENCOUNTER → 2025-02-17 | Outpatient (CLI) | payer OTHER, SELFPAY ==
--- NOTE | 2025-02-17 07:50 | US_ITS ---
PROCEDURE: PELVIC W/ TRANSVAGINAL 02/17/2025 REASON FOR EXAM: BLEEDING TECHNIQUE: Procedure Code: [id number] Modality: US Procedure: PELVIC W/ TRANSVAGINAL COMPARISON: None FINDINGS: Uterus: The uterus is anteverted measuring 10.3 x 6.5 x 5.9 cm. Production Grip notes 4 fibroids measuring between 1.8 and 4.5 cm. Endometrium: Normal hyperechoic endometrium at 7 mm thickness, there is some fluid within the endometrium likely hemorrhage and may be related to patient's cycle. Right ovary: 2.7 x 2.9 x 1.6 cm, no suspicious adnexal mass. Normal color Doppler flow noted Left ovary: 2.9 x 2.4 x 1.7 cm, no suspicious adnexal mass, normal color Doppler flow Other: No free fluid in the cul de sac, bladder distends normally US/Pelvic w/ Transvaginal IMPRESSION: Multiple uterine fibroids Sonographically normal ovaries No free fluid Reading Location: [id number]
== END | disposition home or self-care (01) ==
PROVIDERS: PCP Nurse Practitioner Family; Referring Provider Nurse Practitioner Women's Health; Visit Provider Nurse Practitioner Women's Health
DX: N93.9 Abnormal uterine and vaginal bleeding, unspecified (principal)
CPT/HCPCS: 76830; 76856

== ENCOUNTER → 2025-04-05 | Outpatient (CLI) | payer OTHER, SELFPAY ==
--- NOTE | 2025-04-05 15:10 | EMB_PTH ---
PATIENT: JOSE DE JESUS NG LOC: [facility] U#:[id number] AGE/SX: 44/F ROOM: RE04/05/[address]: JULIUS Calzada : 1980 BED: DIS: 04/05/2025 SPEC #: [id number] RECD: 04/05/25 16:31 STATUS: DEBO REQ #: [id number] CUONG: 04/05/25 15:[address]: Tania Encarnacion NP DEPT: SURGICAL PATHOLOGY RECD BY: Cody Christine ENTERED: 04/06/25 10:50 SP TYPE: ENDOM BX/C AKILAH DR: JULIUS Solares Tissues: A - Endometrium, NOS Procedures: Surgery Specimen Level IV HEADER OPERATION: Endometrial biopsy PRE-OP DIAGNOSIS: Abnormal uterine bleeding TISSUE SUBMITTED: A- Endometrial tissue MICROSCOPIC DIAGNOSIS A. Endometrium, biopsy: * Inactive endometrium with extensive glandular and stromal breakdown compatible with menstrual endometrium MICROSCOPIC DESCRIPTION Slides are reviewed. GROSS DESCRIPTION A. Received in formalin labeled with the patient's name and date of . Designated as endometrial tissue is a 2.5 x 2.0 x 0.3 cm aggregate of dark red tissue fragments and clotted blood. Entirely submitted in 1 cassette. OK 04/06/2025 CPT:41596
== END | disposition home or self-care (01) ==
LOC: LABSPEC 16:15
PROVIDERS: PCP Nurse Practitioner Family; Visit Provider Nurse Practitioner Women's Health
DX: N93.9 Abnormal uterine and vaginal bleeding, unspecified (principal)
CPT/HCPCS: 88305